=== PATIENT | male | born 1990 | race Caucasian/White ===

== ENCOUNTER → 2018-11-17 09:18 | Outpatient (CLI) | payer OTHER, SELFPAY ==
--- NOTE | 2018-11-17 09:38 | DI.RAD.S_ITS ---
PROCEDURE: XR KNEE LT 3V INDICATIONS: fall with pain TECHNIQUE: 3 views of the knee were acquired. COMPARISON: None. FINDINGS: Bones: No fractures or dislocations. No suspicious bony lesions. Soft tissues: No joint effusion. No suspicious soft tissue calcifications. IMPRESSION: No gross acute left knee fracture or dislocation. Dictated by: Davion Neil M.D. on 11/17/2018 at 10:00 Approved by: Davion Neil M.D. on 11/17/2018 at 10:03
--- NOTE | 2018-11-17 09:38 | DI.RAD.S_ITS ---
PROCEDURE: XR ANKLE RT MIN 3V INDICATIONS: ankle pain TECHNIQUE: 3 views of the ankle were acquired. COMPARISON: None. FINDINGS: Bones: Small calcifications adjacent to lateral aspect of hindfoot possibly over lateral cortex of the cuboid is seen which may represent small avulsion injury. No other fracture or dislocation. Ankle mortise is normally aligned. No suspicious bony lesions. Soft tissues: Soft tissue swelling around ankle joint particularly over lateral malleolus is seen. No tibiotalar joint effusion. Achilles tendon appears normal. IMPRESSION: Lateral ankle soft tissue swelling. Possible avulsion injury involving lateral cortex of calcaneus/cuboid. No other fracture or dislocation. Intact ankle mortise. Dictated by: Davion Neil M.D. on 11/17/2018 at 10:03 Approved by: Davion Neil M.D. on 11/17/2018 at 10:11
== END ==
PROVIDERS: Visit Provider Physician Assistant
DX: M25.571 Pain in right ankle and joints of right foot (principal); M79.605 Pain in left leg; M79.89 Other specified soft tissue disorders
CPT/HCPCS: 73562; 73610